=== PATIENT | female | born 1940 | race Caucasian/White ===

== ENCOUNTER 2016-08-25 14:30 | Emergency (ER) | payer OTHER, MEDICARE ==
[~2016-08-25] VITALS: Ht 162.6 cm; Wt 86.2 kg
[2016-08-25] MEDS ORDERED: CRESTOR40 M2 PO (14:45)
[2016-08-25] MEDS ORDERED: CITALOPRAM HBR20 MG PO (14:46)
[2016-08-25] MEDS ORDERED: ALLOPURINOL300 M1 PO (14:46)
[2016-08-25] MEDS ORDERED: ASPIRIN EC81 M1 PO (14:46)
[2016-08-25] MEDS ORDERED: PROTONIX40 M3 PO (14:46)
[2016-08-25] MEDS ORDERED: MULTI-DAY VITA1 EACH PO (14:47)
[2016-08-25] MEDS ORDERED: FISH OIL 1,0001 EAC2 PO (14:47)
[2016-08-25] MEDS ORDERED: TRIBENZOR 20-51 EACH PO (14:47)
[2016-08-25] MEDS ORDERED: VITAMIN B-121000 MC3 PO (14:48)
[2016-08-25] MEDS ORDERED: SINGULAIR10 M1 PO (14:48)
[2016-08-25] MEDS ORDERED: COSAMIN DS CAP1 EACH PO (14:48)
[2016-08-25] MEDS ORDERED: ZOLPIDEM TARTRAT5 M1 PO (14:49)
[2016-08-25] MEDS ORDERED: ILEVRO1.7 ML OS (14:50)
[2016-08-25] MEDS ORDERED: PREDNISOLONE ACE5 ML OD (14:51)
[2016-08-25] MEDS ORDERED: PRED FORTE1 ML OS (14:51)
--- NOTE | 2016-08-25 14:53 | ED MVC/FALL/TRAUMA COMPLAINT ---
History of Present Illness General Chief Complaint: General Adult Stated Complaint: BIBA, S/P FALL. R SHOULDER PAIN Source: patient, family, EMS Exam Limitations: no limitations Vital Signs & Intake/Output Vital Signs & Intake/Output Vital Signs Date Time Temp Pulse Resp B/P B/P Pulse O2 O2 Flow FiO2 Mean Ox Delivery Rate 08/25 1659 96.4 74 18 134/64 98 Room Air 08/25 1432 98.6 87 16 176/88 97 Room Air Allergies Coded Allergies: ibuprofen (Severe, HIVES 08/25/16) Iodinated Contrast Media - Oral and (HIVES 08/25/16) Reconcile Medications Allopurinol 300 MG TABLET 0.5 TAB PO DAILY GOUT (Reported) Aspirin (Ecotrin*) 81 MG TABLET.DR 1 TAB PO DAILY HEART/BLOOD (Reported) Baclofen 10 MG TABLET 1 TAB PO TIDPRN PRN muscle spasm/strain Citalopram Hydrobromide (Citalopram HBr) 20 MG TABLET 1 TAB PO DAILY MENTAL HEALTH (Reported) Cyanocobalamin (Vitamin B-12) (Unknown Strength) TABLET (Unknown Dose) PO DAILY SUPPLEMENT (Reported) Glucosam/Chondroit/C/Manganese (Cosamin Ds Capsule) 500 MG-400 MG-2 MG-0.33 MG CAPSULE 1 CAP PO DAILY SUPPLEMENT (Reported) Montelukast Sodium (Singulair) 10 MG TABLET 1 TAB PO DAILY ALLERGIES ( Reported) Multivitamin (Multi-Day Vitamins) 1 EACH TABLET 1 TAB PO DAILY SUPPLEMENT ( Reported) Nepafenac (Ilevro) 0.3 % DROPS.SUSP 1 DROP OS QPM LEFT EYE (Reported) Olmesartan/Amlodipin/Hcthiazid (Tribenzor 20-5-12.5 MG Tablet) 20 MG-5 MG-12.5 MG TABLET 1 TAB PO DAILY BP (Reported) Beaver-3/Dha/Epa/Fish Oil (Fish Oil 1,000 MG Softgel) (Unknown Strength) CAPSULE (Unknown Dose) PO BID SUPPLEMENT (Reported) Oxycodone HCl 5 MG TABLET 1-2 TAB PO Q6P PRN severe pain Pantoprazole Sodium (Protonix) 40 MG TABLET.DR 1 TAB PO DAILY GI (Reported) Prednisolone Acetate (Pred Forte) 1 % DROPS.SUSP 1 GTT OS TID LEFT EYE ( Reported) Prednisolone Acetate 1 % DROPS.SUSP 1 GTT OD BID RIGHT EYE (Reported) Rosuvastatin Calcium (Crestor) 40 MG TABLET 1 TAB PO QAM CHOLESTEROL ( Reported) Zolpidem Tartrate 5 MG TABLET 1 TAB PO QPM SLEEP (Reported) Triage Note: 76 Y/O FEMALE BIBA C/O R SIDED NECK, SHOULDER AND UPPER BACK PAIN S/P FALL THIS AFTERNOON. PT ALERT AND ORIENTED X 4, SPEAKING CLEARLY WITH NO DISTRESS NOTED. STATES SHE WAS WALKING THE DOG AND WAS PULLED CAUSING PT TO LAND ON RIGHT SIDE. ARRIVES WITH C COLLAR IN PLACE; UNABLE TO TOLERATE PRE HOSPITAL SLING FOR ARM. PT HOLDING ARM IN POSITION OF COMFORT. DENIES OTHER INJURIES OR COMPLAINTS. AWAITING EVAL Triage Nurses Notes Reviewed? yes Onset: Just prior to arrival Duration: minute(s):, constant, continues in ED Timing: recent history Severity: severe Injuries/Fall Location: upper extremity, back Method of Injury: direct blow, fall Loss of Consciousness: no loss of consciousness Modifying Factors: Improves With: rest. Worsens With: movement, palpation. Associated Symptoms: muscle spasms LMP (ages 10-50): post menopausal : No Patient currently breastfeeds: No HPI: Prior to admission patient was walking a dog that pulled on her right arm causing her to fall onto her right shoulder and back. She complains of severe pain limited range of motion nonradiating constant sharp. She denies fever chills nausea vomiting diarrhea abdominal pain chest pain shortness breath headache dysuria rash bleeding LOC. Past History Travel History Traveled to [place] past 21 day No Medical History Any Pertinent Medical History? 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 No Review of Systems Review of Systems Constitutional: Reports: no symptoms. Eyes: Reports: no symptoms. Ears, Nose, Throat, Mouth: Reports: no symptoms. Respiratory: Reports: no symptoms. Cardiovascular: Reports: no symptoms. Gastrointestinal/Abdominal: Reports: no symptoms. Genitourinary: Reports: no symptoms. Musculoskeletal: Reports: see HPI, back pain, joint pain. Skin: Reports: no symptoms. Neurological/Psychological: Reports: no symptoms. All Other Systems: Reviewed and Negative Physical Exam Physical Exam General Appearance: well developed/nourished, alert, awake, anxious, severe distress, obese Head: atraumatic, normal appearance Eyes: Bilateral: normal appearance, PERRL, EOMI, normal inspection. Ears, Nose, Throat, Mouth: hearing grossly normal, moist mucous membrane Neck: normal inspection, supple, full range of motion, normal alignment, no midline tenderness Cardiovascular: regular rate/rhythm, normal peripheral pulses, norml femoral pulses equa Peripheral Pulses: 4+ carotid (R), 4+ carotid (L) Gastrointestinal: normal bowel sounds, soft, non-tender, no organomegaly Back: normal inspection, decreased range of motion, muscle spasm Extremities: bony-point tenderness, limited range of motion, tenderness, no ligament instability Neurologic/Psych: no motor/sensory deficits, awake, alert, oriented x 3, normal gait, normal mood/affect, chemist biological II-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 No Severe Sepsis Present: No Septic Shock Present: No Progress Differential Diagnosis: ext injury Plan of Care: Orders Procedure Date/time Status Durable Medical Equipment 08/25 1446 Active Diagnostic Imaging: Viewed by Me: Radiology Read. Discussed w/RAD: Radiology Read. Radiology Impression: no acute abnormality, no fracture, no dislocation Departure Departure Time of Disposition: 1655 Disposition: HOME OR SELF CARE Condition: Stable Clinical Impression Primary Impression: Shoulder contusion Qualifiers: Encounter type: initial encounter Laterality: right Qualified Code: S40.011A - Contusion of right shoulder, initial encounter Secondary Impressions: Contusion, scapular region Qualifiers: Encounter type: initial encounter Laterality: right Qualified Code: S40.011A - Contusion of right shoulder, initial encounter Fall Qualifiers: Encounter type: initial encounter Qualified Code: W19.XXXA - Unspecified fall, initial encounter Departure Forms: Customer Survey General Discharge Information Prescriptions: Current Visit Scripts Oxycodone HCl 1-2 TAB PO Q6P PRN severe pain #20 TAB Baclofen 1 TAB PO TIDPRN PRN muscle spasm/strain #30 TAB
--- NOTE | 2016-08-25 16:08 | RADIOLOGY REPORT ---
EXAMINATION: 1. RIGHT SHOULDER. 2. RIGHT SCAPULA. CLINICAL INFORMATION: Fall. Pain. COMPARISON: None TECHNIQUE: 1. Right shoulder. 4 views 2. Right scapula. One view. FINDINGS: 1. Right shoulder. No fracture. No dislocation. There is joint narrowing of the glenohumeral joint with subchondral sclerosis. Spurring of the humerus and the glenoid. The acromioclavicular joint is normal. No displaced fracture of the visualized right ribs. 2. Right scapula. No fracture of scapula. IMPRESSION: 1. Right shoulder. No acute abnormality. Degenerative change of the glenohumeral joint. 2. Right scapula. No fracture of the scapula.
[2016-08-25] MEDS ORDERED: OXYCODONE HCL5 M1 PO (16:58)
[2016-08-25] MEDS ORDERED: BACLOFEN10 M1 PO (16:58)
[2016-08-25 16:59] VITALS: BP 134/64
== END 2016-08-25 17:09 ==
LOC: ERH 14:30
DX: S40.011A Contusion of right shoulder, initial encounter (principal); W19.XXXA Unspecified fall, initial encounter; Y93.K1 Activity, walking an animal; Y92.9 Unspecified place or not applicable
CPT/HCPCS: 73010-RT; 73030-RT; 96374; 96375; J0131; J3360